=== PATIENT | female | born 1945 | race Caucasian/White ===

== ENCOUNTER 2017-12-09 10:36 | Outpatient (CLI) | payer MEDICARE, OTHER ==
--- NOTE | 2017-12-09 12:07 | RAD ---
TWO VIEWS LEFT HIP: DATE: 12/09/17. COMPARISON: None. HISTORY: Left hip pain 4 months, fell in the past. FINDINGS: No evidence for fracture or dislocation. IMPRESSION: No acute findings. POS: [facility]O
== END 2017-12-09 10:37 | disposition home or self-care (01) ==
LOC: SCSRAD 10:36
PROVIDERS: ATTEND Psychiatry & Neurology Neurology
DX: M25.552 Pain in left hip (principal)

== ENCOUNTER 2018-01-14 13:17 | Outpatient (CLI) | payer MEDICARE, OTHER ==
--- NOTE | 2018-01-14 16:56 | MRI ---
MRI OF THE LEFT HIP WITHOUT CONTRAST: 01/14/18 INDICATION: Left hip pain since October. COMPARISON: Left hip radiograph dated 12/09/17. FINDINGS: There is mild degenerative arthrosis involving the left hip. No huan paralabral cyst is evident. No definite labral tear is demonstrated. Ligamentum teres is intact. No joint effusion is noted. There i s some mild tendinosis left gluteus medius tendon. No iliopsoas bursitis is evident. No enlarged lymp h nodes are demonstrated. The left hamstring origin is normal appearing. IMPRESSION: Mild degenerative arthrosis left hip. Mild left gluteus medius tendinosis. POS: [facility]
== END 2018-01-14 13:18 | disposition home or self-care (01) ==
LOC: SCSMRI 13:17
PROVIDERS: ATTEND Family Medicine
DX: M16.12 Unilateral primary osteoarthritis, left hip (principal); M76.02 Gluteal tendinitis, left hip

== ENCOUNTER 2018-09-07 10:11 | Outpatient (CLI) | payer MEDICARE, OTHER ==
--- NOTE | 2018-09-07 13:47 | MRI ---
MRI LUMBAR SPINE WITHOUT CONTRAST: HISTORY: Lumbar radiculopathy. Chronic back pain radiating down the left leg and hip x many years. COMPARISON: None. TECHNIQUE: MRI lumbar spine is performed without intravenous Gadolinium administration. Multisequential, , mult iplanar imaging is performed. FINDINGS: Appropriate T1 marrow signal intensity lumbar vertebral bodies. Lumbar spine vertebral body height i s maintained. There is no fracture. No significant STIR hyperintensity to suggest vertebral body ed ramiro or ligamentous injury. However, there is T2 and STIR hyperintensity with associated T1 marrow si gnal hypo intensity involving the left pedicle at L4 and L5 likely due to stress reactive changes. O bvious spondylolysis is not appreciated. There is no associated spondylolisthesis. Appropriate signal intensity of the psoas muscles. Paraspinal muscles have appropriate signal intens ity. Symmetric signal intensity of the kidneys. Conus medullaris terminates at the mid T12 level. T12-L1: Desiccation with mild loss of disk space height. No significant central canal stenosis or n eural foraminal narrowing. L1-L2: Adequate disk hydration. No significant central canal stenosis or foraminal narrowing. L2-L3: Mild loss of disk space height. No significant central canal stenosis. Neural foramina are patent. L3-L4: Adequate disk hydration. Mild ligamentum flavum thickening and facet hypertrophy. No signif icant central canal stenosis. Neural foramina are patent. L4-L5: Adequate disk hydration. There is no significant loss of disk space height. Minimal general ized disk bulge with disk material and encroachment upon the left subarticular zone. Disk material a buts but does not obscure the traversing left L5 nerve root. Minimal ligamentum flavum thickening an d moderate facet hypertrophy. Overall, there is mild central canal stenosis. Right and left neural foramina are patent. L5-S1: Adequate disk hydration. No significant central canal stenosis. Right neural foramen is mil dly narrowed. Left neural foramen is patent. IMPRESSION: 1. Narrowing of the left subarticular zone secondary to disk material at L4-L5. There is some m ass effect without obscuration of traversing left L5 nerve root. 2. Left pedicle edema at L4 and L5, likely reactive and due to mechanical stresses. POS: MARY
== END 2018-09-07 10:12 | disposition home or self-care (01) ==
LOC: SCSMRI 10:11
PROVIDERS: ATTEND Nurse Practitioner Family
DX: M54.16 Radiculopathy, lumbar region (principal); M48.061 Spinal stenosis, lumbar region without neurogenic claudication; R60.0 Localized edema
CPT/HCPCS: 72148

== ENCOUNTER 2019-08-05 13:40 | Outpatient (CLI) | payer MEDICARE, OTHER ==
--- NOTE | 2019-08-05 15:07 | RAD ---
EXAM: XR Lumbar Spine Bending Min 4V PROVIDED CLINICAL HISTORY: Lumbar disc degenerative disease. Severe low back pain for several months with pain and numbness exte nding down left leg. Lumbar radiculopathy. COMPARISON: 12/14/2012 FINDINGS: T12 ribs are probably hypoplastic with 5 nonrib-bearing lumbar-type vertebral bodies. Mild right conv ex curvature of the lumbar spine is present. The vertebral body heights are within normal limits. No significant narrowing of the intervertebral disc spaces is present. Multilevel osteophytes are see n involving the lower thoracic spine as well as the lumbar spine. No fracture or subluxation is seen. Surgical clips now overlie the right upper quadrant. IMPRESSION: Mild degenerative changes in the lower thoracic and involving the lumbar spine not significantly prog ressed when compared to prior study in 2013.
--- NOTE | 2019-08-05 15:33 | MRI ---
MRI LUMBAR SPINE NONCONTRAST: HISTORY: Low back pain. Multiple falls since 2012. COMPARISON: 09/07/2018. FINDINGS: Appropriate T1 marrow signal intensity of the lumbar vertebrae. Lumbar spine vertebral body height is maintained. No fracture. No significant STIR hyperintensity to suggest vertebral body edema or ligamentous injury. There is edema involving the left L4 and L5 facet along with the associated pedic les. There is a small amount of fluid in the left L4-L5 facet joint. Edema is presumed to be reactive change from mechanical stresses. Appropriate signal intensity of the visualized paraspinal muscles. No retroperitoneal lymphadenopathy . Visualized solid organs are unremarkable. Conus medullaris terminates at the T12-L1 disc space. T12-L1:Minimal central canal stenosis secondary to a minimal central disc bulge. Neural foramina are patent. L1-L2:Adequate disc hydration. No significant central canal stenosis or significant neural foraminal narrowing. L2-L3:Minimal disc desiccation without severe loss of disc space height. No significant central canal stenosis. Neural foramina are patent. L3-L4:Adequate disc hydration. No significant posterior disc of body. No significant central canal st enosis. There is bilateral ligament flavum thickening and facet hypertrophy. Laterally, neural foramina are patent. L4-L5:Adequate disc hydration without significant loss of disc space height. Broad-based disc bulge, ligamentum flavum thickening and facet hypertrophy result in mild central canal stenosis. Small fluid signal intensity is noted in both facet joints. Mild bilateral neural foraminal narrowing. L5-S1:Adequate disc hydration. No significant loss of disc space height. No significant posterior dis c abdomen body. Trace amount of fluid in both facet joints. There are synovial cysts posterior to the left L5-S1 facet joint. There is narrowing of the thecal sac secondary to epidural lipomatosis. IMPRESSION: Degenerative changes of lumbar spine as detailed above. Redemonstration of edematous change involving the left posterior elements at L4-L5. Previously noted narrowing the left subarticular zone at L4-L5 is less evident. Transcribed Date/Time: 08/05/2019 3:49 PM
== END 2019-08-05 13:41 | disposition home or self-care (01) ==
LOC: BICMRI 13:40
PROVIDERS: ATTEND Neurological Surgery
DX: M51.16 Intervertebral disc disorders with radiculopathy, lumbar region (principal); M54.5 Low back pain; M47.814 Spondylosis without myelopathy or radiculopathy, thoracic region; M47.816 Spondylosis without myelopathy or radiculopathy, lumbar region; M48.061 Spinal stenosis, lumbar region without neurogenic claudication
CPT/HCPCS: 72120; 72148

== ENCOUNTER 2019-11-21 15:06 | Outpatient (CLI) | payer MEDICARE, OTHER ==
--- NOTE | 2019-11-21 15:41 | RAD ---
TWO VIEWS CHEST: Comparison: None History: Dyspnea FINDINGS: Two views of the chest show normal sized cardiomediastinal silhouette. There is no evidence of consol idation, mass, or pleural effusion. The bones are unremarkable. IMPRESSION: No evidence of acute cardiopulmonary disease. POS: [facility]
== END 2019-11-21 15:07 | disposition home or self-care (01) ==
LOC: RAD 15:06
PROVIDERS: ATTEND Internal Medicine Critical Care Medicine
DX: R06.00 Dyspnea, unspecified (principal)
CPT/HCPCS: 71046

== ENCOUNTER 2020-07-05 07:44 | Outpatient (CLI) | payer MEDICARE, OTHER ==
[2020-07-05 23:47] LABS: SARS-CoV-2 MS2 Positive; SARS-CoV-2 N Gene Negative; SARS-CoV-2 S Gene Negative; SARS-CoV-2 by NAA Not Detected (NotDetected); SARS-CoV-2 orf1ab Negative
== END 2020-07-05 07:45 | disposition home or self-care (01) ==
LOC: LABBT 07:44
PROVIDERS: ATTEND Specialist
DX: Z01.818 Encounter for other preprocedural examination (principal); Z20.828 Contact with and (suspected) exposure to other viral communicable diseases
CPT/HCPCS: 93005; U0003; 87635; 93010

== ENCOUNTER 2020-07-10 09:24 | Day surgery (SDC) | payer MEDICARE, OTHER ==
[2020-07-09 11:35] VITALS: BMI 29.2
[2020-07-10] MEDS ORDERED: Lidocaine 1% PF 5 ML VIAL ONE (09:42)
[2020-07-10] MEDS ORDERED: Bupivacaine PF 0.5% 30 ML VIAL ONE (11:04)
[2020-07-10] MEDS ORDERED: EPINEPHrine 1 MG/ML AMP ONE (11:04)
[2020-07-10] MEDS ORDERED: Propofol 500 MG/50 ML VIAL ONE (11:17)
[2020-07-10] MEDS ORDERED: Fentanyl 100 MCG/2 ML VIAL ONE (12:40)
[2020-07-10] MEDS ORDERED: HYDROcodone/Acetaminophen 5/325 mg Tablet ONE (15:08)
--- NOTE | 2020-07-10 15:10 | OP ---
DATE OF PROCEDURE: 07/10/2020 PREOPERATIVE DIAGNOSES: 1. Chronic pain syndrome. 2. Lumbar radiculopathy. POSTOPERATIVE DIAGNOSES: 1. Chronic pain syndrome. 2. Lumbar radiculopathy. PROCEDURES PERFORMED: 1. Spinal cord stimulator generator implant. 2. Spinal cord stimulator lead implant x2. ESTIMATED BLOOD LOSS: Minimal. DESCRIPTION OF PROCEDURE: The patient was taken to the operating room and placed prone on the operating room table. A time-out was performed. The back was prepped with DuraPrep. Sterile drapes were applied. Using fluoroscopy, we located the interspace of T12-L1 and L1-L2. We anesthetized the skin in a vertical fashion and then used a 10 blade scalpel to make an incision. We blunt dissected this down to the fascia and using this incision, we inserted a 14-gauge Touhy needle that came in the lead kit in a paramedian technique to engage the ligament. Once we engaged ligament, we used loss of resistance to air to achieve access to the epidural space. Aspiration was negative for CSF or heme. We inserted an 8 contact Medtronic lead through the dorsal midline epidural space and used continuous fluoroscopy to guide it to the bottom of T8. We did the same procedure on the contralateral side to place a parallel 8 contact lead. Stimulation was then performed with the patient awake and the patient noted paresthesia in all pain areas. We took the needles out at that point, taking care not to move the leads. We then inserted an anchor over both leads and we used 2-0 silk suture x3 to fixate this to the fascia. We created a strain relief loop at that site and then we anesthetized the right upper buttock to make a horizontal incision. Incision was made and this was blunt dissected down to Jazmine fascia. We then dissected inferior and superior to create a pocket. We used a tunneling device to create a tunnel between the two incisions. The leads were brought through this tunnel to the battery pocket. They were connected to the battery and we used a torque wrench to secure them to the battery. Impedances were checked which were all good. The battery was placed in the pocket easily. The fascial layers were approximated using 2-0 Vicryl suture in simple interrupted and horizontal mattress fashion. We used 3-0 repeat for a subcuticular stitch and Dermabond as an occlusive dressing. Once this was dry, we placed sterile 4x4s, Medipore tape on top of it and the patient was taken to Day Stay under stable condition. Job ID: [id number]
--- NOTE | 2020-07-10 15:44 | RAD ---
Thoracic spine 2 views intraoperative fluoroscopy HISTORY: Stimulator placement. FINDINGS: Intraoperative fluoroscopy was provided for dorsal column stimulator placement as performed by Dr. Francis. Spot fluoroscopic images show 2 metallic leads projecting over the posterior aspect of the central spinal canal at the mid to lower thoracic spine. Fluoroscopy time 334 seconds.
== END 2020-07-10 15:45 | disposition home or self-care (01) ==
LOC: SDC 09:24
PROVIDERS: ATTEND Specialist
PROC: 0JH70DZ Insertion of Multiple Array Stimulator Generator into Back Subcutaneous Tissue and Fascia, Open Approach (ICD-10-PCS; principal; 2020-07-10)
PROC: 00HU3MZ Insertion of Neurostimulator Lead into Spinal Canal, Percutaneous Approach (ICD-10-PCS; 2020-07-10)
DX: G89.4 Chronic pain syndrome (principal); M47.26 Other spondylosis with radiculopathy, lumbar region; M51.16 Intervertebral disc disorders with radiculopathy, lumbar region; M47.817 Spondylosis without myelopathy or radiculopathy, lumbosacral region; M46.1 Sacroiliitis, not elsewhere classified; I10 Essential (primary) hypertension; E78.5 Hyperlipidemia, unspecified; G47.30 Sleep apnea, unspecified; M19.90 Unspecified osteoarthritis, unspecified site; F17.290 Nicotine dependence, other tobacco product, uncomplicated; F32.9 Major depressive disorder, single episode, unspecified; E89.0 Postprocedural hypothyroidism; I69.398 Other sequelae of cerebral infarction; R53.1 Weakness; M79.7 Fibromyalgia; G62.9 Polyneuropathy, unspecified; Z79.82 Long term (current) use of aspirin; Z79.899 Other long term (current) drug therapy
CPT/HCPCS: 72070; 76000; C1778; C1787; J0171; J0690; J2704; J3010; L8679; L8689; S0020

== ENCOUNTER 2023-12-15 11:12 | Outpatient (CLI) | payer MEDICARE | END 2023-12-15 11:13 | disposition home or self-care (01) | LOC: SCSRAD 11:12 | PROVIDERS: ATTEND Family Medicine | DX: R05.9 Cough, unspecified (principal) | CPT/HCPCS: 71046 ==